=== PATIENT | male | born 1940 | race Caucasian/White ===

== ENCOUNTER 2018-08-20 06:21 | Observation (INO) | payer MEDICARE ==
[~2018-08-20] VITALS: Ht 238.8 cm; Wt 80.9 kg
--- NOTE | ~2018-08-20 | OP ---
PATIENT NAME: DEL CAMP MEDICAL RECORD: [id number] :41 LOCATION:D.OPS ADMISSION DATE: SURGEON: JANNA NASCIMENTO MD DATE OF OPERATION: 08/20/2018 PREOPERATIVE DIAGNOSES: 1. Right inguinal hernia. 2. Hypothyroidism. 3. Hyperlipidemia. 4. Cardiac arrhythmia. POSTOPERATIVE DIAGNOSES: 1. Right inguinal hernia. 2. Hypothyroidism. 3. Hyperlipidemia. 4. Cardiac arrhythmia. PROCEDURE: Right inguinal hernia repair with medium PHS mesh. SURGEON: Janna Nascimento MD REPORT OF PROCEDURE: The patient's right groin was prepped and draped in sterile fashion. An oblique incision was made above the inguinal ligament. Electrocautery was used to dissect through the subcutaneous tissue to the external oblique fascia. This fascia was opened up to the external ring using electrocautery. The spermatic cord was elevated and a Hawthorne was placed around it. The patient had 2 branches of an ilioinguinal nerve and these were high ligated. The patient had an indirect hernia defect. This was freed up from the surrounding tissues and pushed back down into the abdominal cavity. We inspected the patient's testicle and there was no sign of any masses or lesions visible. At this point, the inguinal floor was opened up and the preperitoneal space was opened in all directions. A medium PHS mesh was inserted and sutured down on all 4 sides using multiple interrupted 0 Vicryls. The wound was then irrigated out with normal saline. The external oblique fascia was closed with running 2-0 Vicryl, Shirlene's was closed with interrupted 3-0 Vicryl and the skin was closed with running subcutaneous 5-0 Monocryl. A 10 mL of 0.25% Marcaine with epinephrine was infused into the surrounding tissues and the wound was dressed appropriately. COMPLICATIONS: None. CONDITION: Stable. ANESTHESIA: General endotracheal and local. BLOOD LOSS: Minimal. TRANSINT:[id number] Voice Confirmation ID: [id number] DOCUMENT ID: [id number] OPERATIVE REPORT [id number] DEL CAMP CHRISTIAN MD CC: DEL GUTIÉRREZ MD [id number] DICTATION DATE: 08/20/18 1039 DAIRY TECHNOLOGIST: 08/20/18 [address] [place] [address]
[2018-08-20 07:16] LABS: HEMATOCRIT 41.8 % (42.0-54.0); HEMOGLOBIN 13.7 g/dL (13.5-17.5); LYMPHOCYTES 19.2 % (15-50); MCH 28.1 pg (26.0-34.0); MCHC 32.8 g/dL (31.0-37.0); MCV 85.7 fL (80.0-100.0); MEAN PLATELET VOLUME 10.3 fL (7.4-10.4); NEUTROPHILS 70.9 % (40-80); PLATELET COUNT 208 10x3/uL (130-400); RBC 4.88 10x6/uL (4.20-6.10); RDW 15.6 % (11.5-14.5); WBC 6.3 10x3/uL (4.8-10.8)
[2018-08-20 07:25] LABS: ANION GAP 14.1 mmol/L (8-16); CALCIUM 8.8 mg/dL (8.5-10.1); CARBON DIOXIDE 26.6 mmol/L (21.0-32.0); CREATININE - SERUM 1.2 mg/dL (0.6-1.3); POTASSIUM - SERUM 3.7 mmol/L (3.5-5.1)
[2018-08-20] MEDS ORDERED: PACERONE200 MG PO (08:13)
[2018-08-20] MEDS ORDERED: SYNTHROID200 MC1 PO (08:14)
[2018-08-20] MEDS ORDERED: OMEPRAZOLE40 MG PO (08:15)
[2018-08-20] MEDS ORDERED: VITAMIN B-121000 MCG PO (08:15)
[2018-08-20] MEDS ORDERED: CRESTOR10 MG PO (08:16)
[2018-08-20] MEDS ORDERED: TEMAZEPAM30 MG PO (08:17)
[2018-08-20] MEDS ORDERED: VIAGRA50 MG (08:18)
[2018-08-20] MEDS ORDERED: VIAGRA50 MG PO (08:18)
[2018-08-20 08:53] VITALS: BP 124/70; BMI 14.2
[2018-08-20] MEDS ORDERED: NORCO 10-325 TA1 TAB PO (10:35)
--- NOTE | 2018-08-20 11:20 | NUR ---
REC'D FROM RR. FAMILY AT BEDSIDE. DRESSING CDI TO RIGHT GROIN. RELATES PAIN 7-03/20. WATER AND FL TRAY BROUGHT TO PT.
--- NOTE | 2018-08-20 11:35 | NUR ---
NORCO 10MG PO ADMINISTERED PER ORDERS.
--- NOTE | 2018-08-20 11:50 | NUR ---
RATES PAIN 5/10 POST NORC. EATING FL DIET. FAMILY AND FRIEND AT BEDSIDE.
--- NOTE | 2018-08-20 12:20 | NUR ---
NO URGE TO VOID. NO C/O VOICED. GOING TO LUNCH.
--- NOTE | 2018-08-20 13:20 | NUR ---
UP TO BATHROOM. UNABLE TO VOID. LR 1000MG X1 PER DR NASCIMENTO.
--- NOTE | 2018-08-20 14:00 | NUR ---
UNABLE TO VOID. WATER BROUGHT TO PT AND IV INFUSING PER RIGHT PIV. FAMILY AT BEDSIDE.
--- NOTE | 2018-08-20 15:00 | NUR ---
AMBULATED TO BATHROOM. UNABLE TO VOID.
--- NOTE | 2018-08-20 15:15 | NUR ---
DR NASCIMENTO FINISHED IN OR. PAGED DR NASCIMENTO AND CALL BACK NUMBER LEFT.
--- NOTE | 2018-08-20 15:25 | NUR ---
SPOKE WITH DR NASCIMENTO REGARDING PATIENT'S INABILITY TO URINATE. ORDERED A BLADDER SCAN.
--- NOTE | 2018-08-20 15:50 | NUR ---
BLADDER SCANNED WITH 94-110ML NOTED. DR NASCIMENTO NORIFIED OF FINDINGS. ORDERED TO ADMIT TO OBSERVATION.
--- NOTE | 2018-08-20 17:10 | NUR ---
REPORT CALLED TO Hermelinda GUARDADO RN. WAITING FOR ROOM TO BE CLEANED.
--- NOTE | 2018-08-20 18:05 | NUR ---
ROOM 1211 IS CLEAN. PT RELATES HE DID VOID WITHOUT DIFFICULTY. TRANSFERRING TO ROOM 1211 VIA WC.
--- NOTE | 2018-08-20 18:25 | NUR ---
PT ARRIVED TO UNIT VIA WHEELCHAIR ACCOMPANIED BY HOSPITAL STAFF. PT HAS A LEFT FA IV RUNNING NS AT 50ML/HR. PT RT GROIN DRESSING IS CDI. PT HAS VOIDED TWICE, ONCE IN OUPATIENT AND ONCE ON THIS UNIT. PT'S UNABLE TO DRIVE AFTER DARK. PT STAYING FOR OBS. PT DINNER TRAY ORDERED. PT DENIES NEEDS. WCTM.
[2018-08-20 18:39] VITALS: Ht 238.8 cm; Wt 80.9 kg
[2018-08-20 23:00] VITALS: BP 127/68
[2018-08-21 04:07] VITALS: BP 122/72
--- NOTE | 2018-08-21 08:00 | NUR ---
AWAKE AND ALERT. ORIENTED X3. NO C/O THIS AM. REPORTS VOIDING WITHOUT DIFFICULTY. LUNGS ARE CLEAR BILATERALLY, NO COUGH NOTED. SKIN IS INTACT WITHOUT REDNESS. IV TO LEFT FOREARM IS PATENT WITHOUT REDNESS AT INSERTION SITE. DENIES NEEDS. ANXIOUS TO GO HOME.
[2018-08-21 08:24] VITALS: BP 127/67
--- NOTE | 2018-08-21 09:56 | NUR ---
REQUESTED AND GIVNE ONE HYDROCODONE PO FOR C/O RIGHT GROIN PAIN LEVEL 2. WILL MONITOR.
--- NOTE | 2018-08-21 11:18 | NUR ---
DISCHARGED TO HOME AMBULATORY WITH FRIEND. DISCHARGE INSTRUCTIONS GIVEN BOTH VERBALLY AND WRITTEN. ALL QUESTIONS ANSWERED. PATIENT VERBALIZED UNDERSTANDING OF SAME. TO RIGHT FOREARM D/C WITH CATHETER INTACT. ALL BELONGINGS WITH PATIENT.
== END 2018-08-21 11:20 | disposition home or self-care (01) ==
LOC: D.OPS 06:21 → D.M3 06:21 → D.OPS 09:00 → D.PAN 09:00 → D.OPS 09:15 → D.M3 18:06 → D.OPS 18:07 → OBSVTIME 18:07 → D.M3 18:07
PROVIDERS: ADMIT Surgery
DX: K40.90 Unilateral inguinal hernia, without obstruction or gangrene, not specified as recurrent (principal); E03.9 Hypothyroidism, unspecified; E78.5 Hyperlipidemia, unspecified

== ENCOUNTER 2018-10-18 14:58 | Observation (INO) | payer MEDICARE ==
[~2018-10-18] VITALS: Ht 188 cm; Wt 79.1 kg
--- NOTE | ~2018-10-18 | OP ---
PATIENT NAME: DEL CAMP MEDICAL RECORD: [id number] :41 LOCATION:D.M2 D.2137 ADMISSION DATE:10/18/18 SURGEON: CHANI BRAXTON MD DATE OF OPERATION: 10/19/2018 PROCEDURES: 1. Left heart catheterization. 2. Selective coronary angiography. 3. Left ventriculogram. INDICATION: Angina and coronary artery disease. PROCEDURE IN DETAIL: After informed consent was obtained with detailed description of risks and benefits as well as alternative therapies, the patient elected to proceed with angiogram and heart catheterization. The right radial area was prepped and draped in normal sterile fashion. The right radial artery was cannulated via modified Seldinger technique with placement of 6-Botswanan sheath. All catheters were exchanged through this sheath. FINDINGS: Left ventriculogram performed in standard 30-degree MURPHY view reveals good cardiac wall motion throughout all segments. Overall ejection fraction is estimated at 50%. SELECTIVE CORONARY ANGIOGRAPHY: Left main, left anterior descending, left circumflex, and right coronary artery are all with just minimal irregularities. No flow-limiting stenosis. OVERALL IMPRESSION: 1. No significant coronary artery disease is present. 2. Preserved LV function. Center medical management on treatment of the bradycardia and the dysrhythmia. TRANSINT:[id number] Voice Confirmation ID: [id number] DOCUMENT ID: [id number] CHANI BRAXTON MD CC: [id number] DICTATION DATE: 10/19/18 162 PUBLIC RELATIONS PROFESSIONAL: 10/19/18 1856 ADM IN [facility] [address] [place] [address]
--- NOTE | ~2018-10-18 | EC ---
PATIENT:DEL CAMP DATE OF SERVICE: 10/18/18 SEX: M MEDICAL RECORD: [id number] DATE OF : 42 LOCATION:D.M2 D.213 AGE OF PATIENT: 78 ADMISSION DATE: 10/18/18 REFERRING PHYSICIAN: INTERPRETING PHYSICIAN: CHANI ROBERTS MD ECHOCARDIOGRAM REPORT ECHO CHARGES 4 ECHO COMPLETE Date: 10/19/18 CLINICAL DIAGNOSIS: AFIB ECHOCARDIOGRAPHIC MEASUREMENTS (adult normal given) AC root (d.<3.7cm) 4.3 cm LV Septum d (<1.2 cm> 1.7 cm Valve Excursion 2.1 cm LV Septum (systole) 2.0 cm Left Atria (s.<4.0cm> 3.5 cm LVPW d(<1.2cm) 1.8 cm RV (d.<2.3cm) 5.0 cm LVPW (sytole) 1.9 cm LV diastole(<5.6CM) 52.0 cm MV E-F(>70mm/sec) cm LV systole 4.0 cm LVOT Diameter 2.5 cm MV exc.(>10mm) 1.1 cm Est.ejection fraction (50-75%) % DOPPLER: LVIT cm/sec A 97.0 cm/sec E 50.0 cm/sec LA cm/sec RVSP 35 mmHg LVOT 4130 cm/sec AOP1/2T 554 m/s Asc. Ao 170 cm/sec RVOT 66 cm/sec RA cm/sec PA 104 cm/sec AV Gradient Peak 11.53mmHg AV Mean 5.99 mmHg AV Area 3.70 cm MV Gradient Peak 3.88 mmHg MV Mean 0.89 mmHg MV Area cm COMMENTS: Master Automotive Glass Technician: Vikash KRAMER Dogger: 1 Dr. Roberts TAPE# PACS Pericardial Effusion N DATE OF SERVICE: 10/19/2018 FINDINGS: 1. Left ventricular chamber size is within normal limits. Left ventricular systolic function is normal. Overall ejection fraction is estimated at 55%. 2. Left atrium is within normal limits at 3.5 cm. Right atrium and right ventricular chamber sizes are mildly dilated. 3. Valvular structures have normal structure and motion. 4. Doppler interrogation reveals mild aortic insufficiency and mild tricuspid regurgitation. No other valvular insufficiency or stenosis. Pulmonary systolic ECHOCARDIOGRAM REPORT [id number] DEL CAMP pressure is normal, estimated at 35 mmHg. 5. No evidence of pericardial effusion or left ventricular thrombus. TRANSINT:[id number] Voice Confirmation ID: [id number] DOCUMENT ID: [id number] CHANI ROBERTS MD CC: [id number] DICTATION DATE: 10/19/181638 STAIN REMOVER: 10/19/181911 ADM IN [facility] [address] [place] [address]
--- NOTE | ~2018-10-18 | DS ---
PATIENT:DEL CAMP :42 MEDICAL RECORD: [id number] DISCHARGE SUMMARY ADMISSION DATE: 10/18/18 DISCHARGE DATE: DIAGNOSES: 1. Bradycardia. 2. Angina. 3. Paroxysmal atrial fibrillation. 4. Hyperlipidemia. HOSPITAL COURSE: Mr. Camp presents with bradycardia and chest pain, found to have no significant coronary disease. He was on amiodarone 200 mg b.i.d. for atrial fibrillation. This was decreased to 100 mg a day. He will follow up with [facility] in 1 month. TRANSINT:[id number] Voice Confirmation ID: [id number] DOCUMENT ID: [id number] CHANI BRAXTON MD CC: [id number] DICTATION DATE: 10/19/18 1626 INSTRUMENT MECHANICS SUPERVISOR: 10/20/18 0657 ADM IN [place] [id number] [place] [id number]
--- NOTE | ~2018-10-18 | HEMODYNAMI ---
PATIENT:DEL CAMP MEDICAL RECORD: [id number] : 41 [facility]:[address] [id number] ADMISSION DATE: 10/18/18 Generatedon:10/19/201816:23 Patient name: DEL CAMP Patient #: [id number] SSN: : 1940 Date of study: 10/19/2018 Page: Of Hemodynamic Procedure Report Patient Data Patient Demographics Procedure consent was obtained First Name: DEL Gender: Male Last Name: CONRADO : 1940 [facility] Initial: J Age: 78 year(s) Patient #: [id number] Race: Unknown Additional ID: [id number] Contact details Address: [address] [place] [address] State: [place] City: [place] Zip code: [address] Past Medical History Allergies: No known allergies Admission Admission Data Admission Date: 10/18/2018 Admission Time: 16:38 Room #: D.2137 Lab Results Lab Result Date: 10/19/2018 Lab Result Time: 15:15 Biochemistry Name Units Result Min Max BUN mg/dl 16 --(---*)-- 7 18 Creatinine mg/dl 1.3 --(---*)-- 0.6 1.3 CBC Name Units Result Min Max Hematocrit % 43 --(*---)-- 42 54 Hemoglobin g/dl 14.2 --(*---)-- 13.5 17.5 Procedure Procedure Types Cath Procedure Diagnostic Procedure LHC LHC w/Coronaries Procedure Description Procedure Date Procedure Date: 10/19/2018 Procedure Start Time: 16:14 Procedure End Time: 16:23 Procedure Staff Name Function Lizandro Roberts MD Performing Physician Jake Rios RT Monitor Inna Zurita RN Nurse Xiomara Gandara RT Scrub Sagar Olguin RT Coil Placer Procedure Data Cath Procedure Fluoroscopy Diagnostic fluoroscopy Total fluoroscopy Time: 1.6 time: 1.6 min min Diagnostic fluoroscopy Total fluoroscopy dose: 408 dose: 408 mGy mGy Contrast Material Contrast Material Type Amount (ml) Isovue 300 46 Entry Location Entry Primary Successful Side Size Upsize Upsize Entry Closure Amaro ccessful Closure Location (Fr) 1 (Fr) 2 (Fr) Remarks Device Remarks Radial Right 6 Fr Mechanical artery Short Compression Estimated blood loss: 5 ml Diagnostic catheters Device Type Used For End Catheter Placement DIAGNOSTIC [place] 110cm 5 Procedure Fr catheter ([id number]) Procedure Complications No complications Procedure Medications Medication Administration Route Dosage Oxygen etCO2 Nasal cannula 2 l/min Lidocaine 2% added to field 20 Heparin Flush Bag added to field 2 bags (1000units/500ml NS) 0.9% NaCl I.V. 100 ml/hr Radial Cocktail I.A. 1 syringe (Verapomil 2mg/Nitro 400mcg/Heparin 1500units) Versed I.V. 1 mg Fentanyl I.V. 50 mcg Versed I.V. 1 mg Hemodynamics Rest Heart Rate: 50 (bpm) Snapshots Pre Cath Intra NCS Post Cath Vital Signs Time Heart Resp SPO2 etCO2 NIBP (mmHg) Rhythm Pain Sedation Rate (ipm) (%) (mmHg) Status Level (bpm) 16:04:37 51 19 98 18.8 134/75(113) NSR 0 (11) 10(A) , No pain 16:08:53 50 18 99 18.1 127/74(106) NSR 0 (11) 10(A) , No pain 16:13:07 49 12 98 22.6 142/71(114) NSR 0 (11) 9(A) , No pain 16:17:17 50 15 98 0 118/69(91) NSR 0 (11) 9(A) , No pain 16:21:27 55 12 98 24.9 120/70(86) NSR 0 (11) 10(A) , No pain 16:22:57 52 10 97 0 120/71(99) NSR 0 (11) 10(A) , No pain Medications Time Medication Route Dose Verified Delivered Reason Notes Effectiveness by by 16:07:09 Oxygen etCO2 2 l/min Lizandro Keith used for Nasal Armando Zurita RN procedure cannula 16:07:15 Lidocaine 2% added 20ml Lizandro Bone for local to vial Armando Roberts MD anesthetic field 16:07:21 Heparin Flush added 2 bags Lizandro Bone used for Bag to Armando Roberts MD procedure (1000units/500ml field NS) 16:07:29 0.9% NaCl I.V. 100 Lizandro Keith Per ml/hr Armando Zurita RN physician 16:07:53 Radial Cocktail I.A. 1 Lizandro Bone for (Verapomil syringe Armando Roberts MD vasodilation 2mg/Nitro 400mcg/Heparin 1500units) 16:11:01 Fentanyl I.V. 50 mcg Lizandro Keith for sedation Armando Zuirta RN 16:11:56 Versed I.V. 1 mg Lizandro Keith for sedation Armando Zurita RN 16:16:07 Versed I.V. 1 mg Lizandro Keith for sedation Armando Zurita RN Procedure Log Time Note 15:44:39 Sagar Olguin RT(R) sent for patient. Start room use. 15:44:39 Time tracking: Regular hours (M-F 7:00 - 5:00) 15:44:43 Plan of Care:Hemodynamics will remain stable., Cardiac rhythm will remain stable., Comfort level will be maintained., Respiratory function will remain adequate., Patient/ family verbilizes understanding of procedure., Procedure tolerated without complication., Recovers from procedure without complications.. 15:54:05 Patient received from Med II to CCL 1 Alert and oriented. Tansferred to table in Supine position. 15:54:06 Warm blankets applied, and surekha hugger turned on for patient comfort. 15:54:06 Correct patient and procedure confirmed by team. 15:54:07 Signed procedure consent form obtained from patient. 15:54:08 ECG and BP/O2 sat monitors applied to patient. 15:54:09 Pre-procedure instructions explained to patient. 15:54:10 Pre-op teaching completed and patient verbalized understanding. 15:54:11 Family in patients room. 15:54:12 Patient NPO since Midnight. 15:54:46 Lab Result : Hemoglobin 14.2 g/dl 15:54:46 Lab Result : Hematocrit 43 % 15:54:46 Lab Result : BUN 16 mg/dl 15:54:46 Lab Result : Creatinine 1.3 mg/dl 15:55:12 H&P Date Dictated: 10/18/2018 Within 30 days and on chart.. 15:55:18 Lab results completed and on chart. 16:03:25 Vital chart was started 16:07:09 Oxygen 2 l/min etCO2 Nasal cannula was administered by Inna Zurita RN; used for procedure; 16:07:15 Lidocaine 2% 20ml vial added to field was administered by Lizandro Roberts MD; for local anesthetic; 16:07:21 Heparin Flush Bag (1000units/500ml NS) 2 bags added to field was administered by Lizandro Roberts MD; used for procedure; 16:07:29 0.9% NaCl 100 ml/hr I.V. was administered by Inna Zurita RN; Per physician; 16:07:53 Radial Cocktail (Verapomil 2mg/Nitro 400mcg/Heparin 1500units) 1 syringe I.A. was administered by Lizandro Roberts MD; for vasodilation; 16:09: Full Disclosure recording started 16:09:16 Patient allergic to No known allergies 16:09:18 Is the patient allergic to Iodine/contrast media? No. 16:09:21 Is patient on blood thinner?No 16:09:22 Patient diabetic? No. 16:09:25 Previous problem with sedation/anesthesia? No ? 16:09:28 Snore? Yes 16:09:35 Sleep apnea? No 16:09:36 Deviated septum? No 16:09:37 Opens mouth fully? Yes 16:09:41 Sticks out tongue? Yes 16:09:47 Airway obstruction? No ? 16:09:56 Dentures? Yes in tight 16:10:00 Pre procedure: left dorsailis pedis pulse 2+ Normal; easily identifiable; not easily obliterated 16:10:02 Modified Leobardo's test Ulnar < 7 seconds 16:10:04 Patient pain scale 0/10 ?. 16:10:14 IV patent on arrival in left forearm with 0.9% NaCl at [facility]. 16:10:20 Right Radial & Left Groin area was prepped with chlora-prep and draped in sterile fashion 16:10:21 Alarms reviewed by R. N. 16:10:21 Sharps counted by scrub and verified by R.N. 16:10:23 Use device set Radial Dx or PCI 16:10:24 ACIST Syringe (14177) opened to sterile field. 16:10:24 Medline Cath Pack ([id number]) opened to sterile field. 16:10:25 Bag Decanter (2001S) opened to sterile field. 16:10:26 ACIST Hand Control (48571) opened to sterile field. 16:10:27 ACIST Manifold (94168) opened to sterile field. 16:10:27 Tegaderm 4 x 4 (1626W) opened to sterile field. 16:10:28 MBrace Wrist Support ([id number]) opened to sterile field. 16:10:29 SHEATH 6FR Slender (17-6920) opened to sterile field. 16:10:30 DIAGNOSTIC WIRE .035 260cm J wire (409467) opened to sterile field. 16:10:34 Baseline sample Acquired. 16:10:38 Rhythm: sinus rhythm 16:10:52 Physician arrived 16:10:53 --------ALL STOP TIME OUT------ 16:10:53 Final Timeout: patient, procedure, and site verified with staff and physician. All members of the team are in agreement. 16:10:55 Right Radial & Left Groin site verified by team. 16:10:58 Maximum allowable Isovue 300 dose 300ml. Physician notified. (300ml for normal creatinines. For patients with creatinine of 1.7 or higher multiply weight(kg) x 5 divided by creatinine.) 16:11:01 Fentanyl 50 mcg I.V. was administered by Inna Zurita RN; for sedation; 16:11:03 Fire Safety Assessment: A--An alcohol-based skin anteseptic being used preoperatively., C--Open oxygen or nitrous oxide is being used., D--An ESU, laser, or fiber-optic light is being used., E--There are other possible contributors. 16:11:06 Physical assessment completed. ASA score P 2 - A patient with mild systemic disease as per Lizandro Roberts MD. 16:11:08 Sedation plan: IV Moderate Sedation Medication:Versed, Fentanyl 16:11:56 Versed 1 mg I.V. was administered by Inna Zurita RN; for sedation; 16:14:42 Procedure started. 16:14:47 Local anesthetic to right radial artery with Lidocaine 2% by Lizandro Roberts MD.INITIAL ACCESS ONLY 16:14:56 A 6 Fr Short sheath was inserted into the Right Radial artery 16:14:58 Zero performed for pressure channel P1 16:15:02 Zero performed for pressure channel P1 16:15:04 Zero performed for pressure channel P1 16:15:07 Zero performed for pressure channel P1 16:15:13 Zero performed for pressure channel P1 16:15:30 Zero performed for pressure channel P1 16:15:52 A DIAGNOSTIC [place] 110cm 5 Fr catheter (581666) was advanced over the wire and used for Procedure. 16:16:07 Versed 1 mg I.V. was administered by Inna Zurita RN; for sedation; 16:16:48 LV gram done using MURPHY 16:16:50 Injector settings: Ml/sec: 5, Volume: 15, 16:16:53 LV hemodynamics recorded. 16:17:03 EF : 40 % 16:17:06 LCA angiography performed. 16:17:31 RCA angiography performed. 16:17:58 Catheter exchanged over wire. 16:18:32 GUIDE 6FR XBLAD 3.5 catheter ([id number]) opened to sterile field. 16:18:55 LCA angiography performed. 16:19:38 TR BAND Standard ([id number]) opened to sterile field. 16:19:48 Sheath removed intact; hemostasis achieved with Mechanical Compression to the Right Radial artery. 16:20:39 Procedure ended.(Physican Out) 16:21:51 Fluoroscopy time 01.60 minutes. 16:21:55 Fluoroscopy dose: 408 mGy 16:21:55 Flurop Dose total: 408 16:21:59 Contrast amount:Isovue 300 46ml. 16:22:00 Sharps counted by scrub and verified by R.N. 16:22:04 TR band inflated with 12cc of air. 16:22:05 Insertion/operative site no bleeding no hematoma. 16:22:11 Post-op/insertion site Right Radial artery dressed using a 4 x 4 and Tegaderm. 16:22:27 Post Procedure Pulses reassessed and unchanged 16:22:29 Post-procedure physical assessment completed. ASA score P 2 - A patient with mild systemic disease as per Lizandro Roberts MD. 16:22:31 Post procedure rhythm: unchanged. 16:22:36 Estimated blood loss: 5 ml 16:22:37 Post procedure instruction explained to patient.Patient verbalizes understanding. 16:22:38 Patient needs reinforcement of post procedure teaching. 16:23:00 Procedure and supply charges have been captured, reviewed, submitted and are correct. 16:23:02 Procedure Complication : No complications 16:23:04 Vital chart was stopped 16:23:04 See physician's report for complete and final results. 16:23:07 Report given to PCU. 16:23:09 Patient transfered to PCU with Stretcher. 16:23:11 Procedure ended. 16:23:11 Full Disclosure recording stopped 16:23:14 End room use (Document Last) Device Usage Item Name Manufacture Quantity Catalog Hospital Part Current Minimal Lot# / Number Charge Number Stock Stock Serial# Code ACIST Acist 1 40594 015691 322966 530622 20 Syringe Medical (40380) Systems Inc Medline Medline 1 [id number] 548178 12114 730309 5 Cath Pack ([id number]) Bag Microtek 1 2001S 207597 39675 514123 5 Decanter Medical Inc. () ACIST Hand Acist 1 42159 360268 877049 193111 5 Control Medical (91563) Systems Inc ACIST Acist 1 59067 454588 397615 015393 5 Manifold Medical (84767) Systems Inc Tegaderm 4 3M 1 1626W 564581 046846 988826 5 x 4 (1626W) MBrace Advanced 1 140-0250-00 084261 06108 339165 5 Wrist Vascular Support Dynamics ([id number]) SHEATH 6FR Terumo 1 [id number] 469786 800863 291264 5 Slender (80-1060) DIAGNOSTIC St German 1 568268 174507 093646 968130 30 WIRE .035 260cm J wire (307453) DIAGNOSTIC Terumo 1 40-7460 564252 112064 267143 5 [place] 110cm 5 Fr catheter (104024) GUIDE 6FR Cardinal 1 [id number] 951078 419275 662849 10 XBLAD 3.5 Health catheter (55181088) TR BAND Terumo 1 [id number] 944042 239806 637451 40 Standard ([id number]) Signature Audit [place] Stage Time Signature Unsigned Intra-Procedure 10/19/2018 Jake Rios 4:23:32 PM RT(R) Signatures Monitor : Jake Rios RT Signature : Date : Time : [place] [address] [place] [address]
[~2018-10-18 14:58] MED LIST: CRESTOR10 MG PO; NORCO 10-325 TA1 TAB PO; OMEPRAZOLE40 MG PO; PACERONE200 MG PO; SYNTHROID200 MC1 PO; TEMAZEPAM30 MG PO; VIAGRA50 MG; VIAGRA50 MG PO; VITAMIN B-121000 MCG PO
--- NOTE | 2018-10-18 15:10 | NUR ---
BLOOD DRAWN WITH IV START AND SENT TO THE LAB.
[2018-10-18 15:29] LABS: BASOPHILS 0.4 % (0-2); HEMOGLOBIN 14.2 g/dL (13.5-17.5); IMMATURE GRANULOCYTES 0.2 % (0-5); LYMPHOCYTES 19.4 % (15-50); MCH 28.3 pg (26.0-34.0); MCV 85.8 fL (80.0-100.0); MEAN PLATELET VOLUME 11.6 fL (7.4-10.4); MONOCYTES 6.4 % (2-11); NEUTROPHILS 72.6 % (40-80); RBC 5.01 10x6/uL (4.20-6.10); RDW 15.1 % (11.5-14.5); WBC 9.1 10x3/uL (4.8-10.8)
[2018-10-18 15:50] LABS: ALBUMIN 3.6 g/dL (3.4-5.0); ALKALINE PHOSPHATASE 61 U/L (46-116); ALT (SGPT) 34 U/L (10-68); BILIRUBIN - TOTAL 0.36 mg/dL (0.2-1.3); CALC OSMOLALITY 285 mosm/kg (275-300); CALCIUM 8.6 mg/dL (8.5-10.1); CHLORIDE - SERUM 106 mmol/L (98-107); CREATININE - SERUM 1.3 mg/dL (0.6-1.3); GLUCOSE 96 mg/dL (74-106); PROTEIN - SERUM 7.2 g/dL (6.4-8.2); SODIUM 143 mmol/L (136-145); UREA NITROGEN 16 mg/dL (7-18); eGFR NON AFRICAN AMERICAN 57 mL/min (90-120)
[2018-10-18 16:00] LABS: CKMB 0.4 U/L (0.0-3.6); CREATINE KINASE 48 UL (21-232)
[2018-10-18 16:04] LABS: PLATELET COUNT 250 10x3/uL (130-400)
[2018-10-18 16:09] VITALS: BP 133/67
[2018-10-18 16:10] LABS: TROPONIN-I < 0.017 ng/mL (0.000-0.060)
--- NOTE | 2018-10-18 17:59 | NUR ---
PT IS PLESANT MALE. UP AD MARCY, A/OX4. CL IN REACH. SRX2. LEFT FOR HOME (DOESN'T DRIVE IN THE DARK) NO COMPLAINTS/CONCERNS STATED AT THIS TIME. TELEMTRY ON.
[2018-10-18 18:07] VITALS: BP 132/76; Ht 188 cm; Wt 79.1 kg
--- NOTE | 2018-10-18 19:36 | NUR ---
EVENING ROUNDS COMPLETED. REPORT RECEIVED. PT SITTING UP IN BED WITH EYES OPEN, RR EVEN AND UNLABORED. PT ANSWERS QUESTIONS APPROPRIATELY. INTRODUCED SELF TO PT. PT DENIES FURTHER NEEDS AT THIS TIME. BED IN LOW POSITION. NO S/S OF DISTRESS NOTED. CALL LIGHT IN REACH. WILL CTM.
[2018-10-18 19:55] VITALS: BP 123/69
--- NOTE | 2018-10-19 02:36 | NUR ---
I have reviewed this patient and I concur with the Shift Assessment completed by the Licensed Practical Nurse today this shift.
[2018-10-19 03:50] VITALS: BP 133/73
--- NOTE | 2018-10-19 05:07 | NUR ---
PT SITTING UP IN BED WITH EYES OPEN, RR EVEN AND UNLABORED. 47 SINUS HORTENCIA ON TELEMETRY. DENIES FURTHER NEEDS AT THIS TIME. CALL LIGHT IN REACH. WILL CTM.
[2018-10-19 07:36] LABS: MAGNESIUM - SERUM 2.1 mg/dL (1.8-2.4)
--- NOTE | 2018-10-19 07:45 | NUR ---
REPORT RECEIVED. WILL CONTINUE WITH POC. PT CURRENTLY LYING SEMI FOWLERS. CALL LIGHT W/I REACH. PT IS AAO AND UP AD MARCY. RR EVEN AND UNLABORED ON RA. L.WRIST PIV IS SALINE LOCKED. PT DENIES ANY NEEDS AT THIS TIME. NO S/S OF DISTRESS NOTED. WILL CTM.
[2018-10-19 08:28] VITALS: BP 124/78
--- NOTE | 2018-10-19 10:54 | HP ---
PATIENT: DEL CAMP MEDICAL RECORD: [id number] ACCOUNT: [id number] LOCATION:[address] : 42 ADMISSION DATE: 10/18/18 PCP: DEL GUTIÉRREZ MD HISTORY AND PHYSICAL EXAMINATION DIAGNOSES: 1. Unstable angina. 2. Paroxysmal atrial fibrillation. 3. Coronary artery disease. 4. Previous cardiac PTCA stent. 5. Hyperlipidemia. 6. Hypothyroidism, on replacement. 7. GERD. HISTORY OF PRESENT ILLNESS: Mr. Camp presents with chest discomfort for the past 3 days, he has had increasing episodes of chest tightness, chest discomfort, very similar to his previous angina. His last cardiac intervention was in 2014. He has a history of atrial fibrillation, for which he is on Pacerone 200 mg b.i.d. He is bradycardic. He also has hyperlipidemia, for which he is on Crestor. REVIEW OF SYSTEMS: The patient reports easy bruising but reports no swollen glands. The patient reports no fever, no night sweats, no significant weight gain, no significant weight loss. No significant exercise tolerance. The patient reports no dry eyes, no irritation, no vision change. Patient reports no difficulty hearing and no ear pain. Patient reports no frequent nose bleeds or nose and sinus problems. Patient reports on arm pain on exertion. No shortness of breath while lying down. No history of heart murmur. Patient reports no cough, no wheezing or coughing up blood. Patient reports no abdominal pain, no vomiting. Normal appetite. No diarrhea and not vomiting blood. No nausea and no constipation. Patient reports no incontinence. No difficulty urinating. No hematuria. No increased frequency. Patient reports no muscle aches. No weakness, no arthralgias, no back pain. No swelling of the extremities. Patient reports no abnormal mole, no jaundice, no rashes. Reports no loss of consciousness. No weakness and no numbness. No seizures, dizziness, or headaches. The patient reports no depression, no sleep disturbance, feeling safe in a relationship and no alcohol abuse. Patient reports on fatigue. Reports no runny nose or sinus pressure. No itching, no hives, and no frequent sneezing. PHYSICAL EXAMINATION: GENERAL APPEARANCE: Well-nourished, well-developed, appears stated age. Level of distress, comfortable. PSYCHIATRIC: Mental status, alert, normal affect. Orientation, oriented to time, place and person. EYES: Lids and conjunctiva, noninjected. No discharge, no pallor. ENT: Lips, teeth, gums, normal dentition. Oropharynx, no cyanosis, no pallor. NECK: Carotid arteries, bilateral normal upstroke, no bruits, no thrills. JUGULAR VEINS: No jugular venous pressure or distention. CERVICAL LYMPH NODES: Nontender, nonenlarged. THYROID: Not enlarged. Nontender. No nodules. LUNGS: Respiratory effort, unlabored. CHEST: Normal curvature. No thoracic deformity. No chest wall tenderness. Percussion, resonant. Auscultation, clear. No wheezes, no rales, no rhonchi. CARDIOVASCULAR: Precordial exam, nondisplaced. No heaves or pericardial HISTORY AND PHYSICAL [id number] DEL CAMP thrmayank. Rate and rhythm, regular. Heart sounds, normal S1, normal S2. No S3, no gallop, no rub. Systolic murmur, not heard. Diastolic murmur, not heard. EXTREMITIES: No cyanosis, no edema. Peripheral pulses, full and equal in all extremities, except as noted. No bruits appreciated. ABDOMEN: Soft, nondistended. Normal aorta. No bruit. Nontender. No masses. Liver, nontender, no hepatomegaly. Spleen, nontender, no splenomegaly. MUSCULOSKELETAL: No joint tenderness. No joint swelling. No erythema. NEUROLOGICAL: Normal gait, normal strength, normal tone. SKIN: Warm and dry. OVERALL IMPRESSION: Angina in an unstable fashion with multiple risk factors and a past history of coronary artery disease, most likely he has recurrent hemodynamically significant coronary artery disease. We will proceed with coronary angiography. Further care depends upon findings of the angiography. TRANSINT:[id number] Voice Confirmation ID: [id number] DOCUMENT ID: [id number] CHANI BRAXTON MD at 1054 CC: [id number] DICTATION DATE: 10/19/18819 GUARD MANAGER: 10/19/18 0849 ADM IN [id number] [place] [address]
--- NOTE | 2018-10-19 11:14 | NUR ---
RECEIVED ORDERS FOR HEART CATH. PT SIGNED CONSENTS. LARGE DOSE OF PLAVIX ADMINISTERED. WILL CTM.
[2018-10-19 11:40] VITALS: BP 132/72
[2018-10-19 14:55] VITALS: BP 123/70
--- NOTE | 2018-10-19 15:08 | NUR ---
PREOP MEDS ADMINISTERED PER [facility] UNDERWRITER REQUEST. NS INFUSING @[facility] VIA L.HAND PIV. WILL CTM.
--- NOTE | 2018-10-19 15:19 | NUR ---
I have reviewed this patient and I concur with the Shift Assessment completed by the Licensed Practical Nurse today this shift.
--- NOTE | 2018-10-19 16:58 | NUR ---
PT RETURNED WITH CLEAN CATH. RIGHT RADIAL SITE IS C/D/I. NO SIGN OF HEMATOMA PRESENT. TR BAND IN PLACE. WILL MONITOR.
--- NOTE | 2018-10-19 18:39 | NUR ---
5ML OF AIR REMOVED FROM TR BAND. NO ACTIVE BLEEDING NOTED. PT ATE ALL OF DINNER AND DENIES ANY NEEDS. WILL CTM.
--- NOTE | 2018-10-19 19:47 | NUR ---
RESUMING PATIENT CARE. PATIENT IS ALERT AND ORIENTED. RESTING COMFORTABLY IN BED. RES[IRATIONS ARE EVEN AND UNLABORED. DENIES NEEDS AT THIS TIME. CALL LIGHT WITHIN REACH. WILL CPOC.
[2018-10-19 20:05] VITALS: BP 116/80
[2018-10-20 03:47] VITALS: BP 119/72
--- NOTE | 2018-10-20 05:13 | NUR ---
PATIENT RESTING COMFORTABLY IN BED. RESPIRATIONS ARE EVEN AND UNLABORED. NO S/S OF DISTRESS. NO C/O PAIN. CALL LIGHT WITHIN REACH. WILL CPOC.
--- NOTE | 2018-10-20 07:00 | NUR ---
RECEIVED BEDSIDE SHIFT REPORT. ASSUMED CARE OF PATIENT. CALL LIGHT WITH IN REACH. PATIENT ALERT/ORIENTED. ASKING IF HE MAY GO HOME TODAY. RESP EVEN AND UNLABORED. NO BRUISING TO RIGHT WRIST FROM HEART CATH ON 10/19/18. TR BAND REMOVED ON PREVIOUS SHIFT. NO DISTRESS.
[2018-10-20 08:26] VITALS: BP 120/66
[2018-10-20 11:44] VITALS: BP 119/69
--- NOTE | 2018-10-20 12:30 | NUR ---
CALLED OFFICE TO QUESTION IF PATIENT WAS ABLE TO BE DISCHARGED TODAY. WAS TOLD MARY CARMEN WOULD BE HERE AT 1400 TO DO AFTERNOON ROUNDS AND WOULD PROBABLY LET PATIENT GO. PATIENT NOTIFIED NURSE PRACTITIONER WILL BE HERE TO DO ROUNDS AT 1400. PATIENT THANKED THIS NURSE FOR THE UPDATE. PATIENT AT BEDSIDE.
[2018-10-20 15:34] VITALS: BP 123/61
--- NOTE | 2018-10-20 16:49 | NUR ---
20 GAUGE IV REMOVED FROM LEFT WRIST. NO BLEEDING FROM SITE. CATHETER TIP INTACT. 2X2 APPLIED AND COVERED WITH BANDAID. NO DISTRESS. TOLERATED IV REMOVAL WELL.
[2018-10-20] MEDS ORDERED: PACERONE100 MG PO (16:58)
--- NOTE | 2018-10-20 17:26 | NUR ---
1715DISCHARGE INSTRUCTIONS PROVIDED TO PATIENT AND HIS . BOTH VERBALIZED UNDERSTANDING OF INSTRUCTIONS PROVIDED. 1720 PATIENT LEFT UNIT WITH ALL PERSONAL BELONGINGS. PATIENT DISCHARGED TO HOME. PATIENT LEFT UNIT VIA WHEELCHAIR IN NO DISTRESS.
== END 2018-10-20 17:28 | disposition home or self-care (01) ==
LOC: D.ER 14:58 → D.EDHOLD 16:38 → D.M2 16:38 → OBSVTIME 16:39 → D.M2 17:14
PROVIDERS: Emergency Medicine; ADMIT Internal Medicine Interventional Cardiology; ATTEND Internal Medicine Interventional Cardiology
DX: R00.1 Bradycardia, unspecified (principal); I25.110 Atherosclerotic heart disease of native coronary artery with unstable angina pectoris; I48.0 Paroxysmal atrial fibrillation; E78.5 Hyperlipidemia, unspecified; E03.9 Hypothyroidism, unspecified; K21.9 Gastro-esophageal reflux disease without esophagitis

== ENCOUNTER → 2020-10-09 09:23 | Outpatient (CLI) | payer MEDICARE ==
[2018-10-18 18:07] VITALS: BMI 22.4
[~2020-10-09 09:23] MED LIST changes: +PACERONE100 MG PO
== END | disposition home or self-care (01) ==
LOC: D.HCCARDIO 10-05 09:00
PROVIDERS: ATTEND Internal Medicine Cardiovascular Disease
DX: I25.10 Atherosclerotic heart disease of native coronary artery without angina pectoris (principal)

== ENCOUNTER 2020-10-19 07:04 | Day surgery (SDC) | payer MEDICARE ==
[~2020-10-19] VITALS: Ht 188 cm; Wt 88.3 kg
--- NOTE | ~2020-10-19 | HEMODYNAMI ---
PATIENT:DEL CAMP MEDICAL RECORD: [id number] : 42 LOCATION:[facility] ADMISSION DATE: 10/19/20 Generatedon:110:11 Patient name: DEL CAMP Patient #: [id number] : 1940 Date of study: 10/19/2020 Page: Of Hemodynamic Procedure Report Patient Data Patient Demographics First Name: DEL Gender: Male Last Name: CONRADO : 1940 [facility] Initial: J Age: 80 year(s) Patient #: [id number] Race: Unknown SSN: [id number] Additional ID: [id number] Contact details [address]: [address] [place] [address] State: [place] City: [place] Zip code: [address] Past Medical History Allergies: No known allergies Admission Admission Data Admission Date: 10/19/2020 Admission Time: 7:04 Arrival Date: 10/19/2020 Arrival Time: 0:00 Admit Source: Other Insurance Payor: Medicare [facility] #: [id number] Height (in.): 28.74 BSA: 1.51 (m2) Height (cm.): 73 BMI: 364.05 (kg/m2) Weight (lbs.): 427.7 Weight (kg.): 194 Lab Results Lab Result Date: 10/19/2020 Lab Result Time: 0:00 Biochemistry Name Units Result Min Max BUN mg/dl 14 --(--*-)-- 7 18 Creatinine mg/dl 1.2 --(---*)-- 0.6 1.3 eGFR ml/min 61.53696 *-(----)-- 90 120 NONAFRICAN CBC Name Units Result Min Max Hemoglobin g/dl 14.4 --(*---)-- 13.5 17.5 Procedure Procedure Types Cath Procedure Diagnostic Procedure LHC Coronaries only Aortic Root Angiography Sedation Charges Moderate Sedation 10-24 minutes Procedure Description Procedure Date Procedure Date: 10/19/2020 Procedure Start Time: 9:46 Procedure End Time: 10:06 Procedure Staff Name Function Ata Akers MD Performing Physician Luz Orozco RT Monitor Inna Zurita RN Nurse Mayda Velez RT Scrub Procedure Data Cath Procedure Fluoroscopy Diagnostic fluoroscopy Total fluoroscopy Time: 5.1 time: 5.1 min min Diagnostic fluoroscopy Total fluoroscopy dose: 565 dose: 565 mGy mGy Contrast Material Contrast Material Type Amount (ml) Isovue 300 100 Entry Location Entry Primary Successful Side Size Upsize Upsize Entry Closure Succes sful Closure Location (Fr) 1 (Fr) 2 (Fr) Remarks Device Remarks Femoral Right 5 Fr Exoseal artery Estimated blood loss: 5 ml Diagnostic catheters Device Type Used For End Catheter Placement MULTIPACK JL 4.0 5Fr Procedure catheter DIAGNOSTIC JL 5 5Fr Procedure catheter ([id number]) MULTIPACK 3DRC 5Fr Procedure catheter MULTIPACK Pigtail 5 Fr Procedure catheter Procedure Complications No complications Procedure Medications Medication Administration Route Dosage Oxygen etCO2 Nasal cannula 2 l/min Lidocaine 2% added to field 20 Heparin Flush Bag added to field 2 bags (1000units/500ml NS) 0.9% NaCl I.V. 100 ml/hr Versed I.V. 1 mg Fentanyl I.V. 50 mcg Versed I.V. 1 mg Fentanyl I.V. 50 mcg Versed I.V. 0.5 mg Fentanyl I.V. 25 mcg Hemodynamics Rest BSA: 1.51 (m2) HGB: 14.4 (g/dl) O2 Consumption: Estimated: 166.59 (ml/min) O2 Co nsumption indexed: Estimated:110.32 (ml/min/m) Heart Rate: 59 (bpm) Snapshots Pre Cath Intra NCS Post Cath Vital Signs Time Heart Resp SPO2 etCO2 NIBP (mmHg) Rhythm Pain Sedation Rate (ipm) (%) (mmHg) Status Level (bpm) 9:25:42 53 10 100 17.3 139/86(120) SB 0 (11) 10(A) , No pain 9:30:00 50 12 96 0 133/78(113) SB 0 (11) 10(A) , No pain 9:34:14 48 18 96 15 135/77(93) SB 0 (11) 10(A) , No pain 9:38:28 45 20 99 0 132/79(118) SB 0 (11) 10(A) , No pain 9:43:29 49 19 94 0 141/79(117) SB 0 (11) 10(A) , No pain 9:48:24 54 19 98 0 135/76(116) SB 0 (11) 9(A) , No pain 9:52:42 55 24 96 0 135/69(102) SB 0 (11) 9(A) , No pain 9:56:59 64 12 96 0 128/73(94) SB 0 (11) 9(A) , No pain 10:01:15 60 18 94 0 126/70(94) SB 0 (11) 10(A) , No pain 10:05:26 29 10 99 0 129/78(98) SB 0 (11) 10(A) , No pain Medications Time Medication Route Dose Verified Delivered Reason Notes Effe ctiveness by by 9:25:12 Oxygen etCO2 2 Ata Buffie used for Nasal l/min Oswald Zurita RN procedure cannula 9:25:24 Lidocaine 2% added 20ml Ata Ata for local to vial Oswald Akers MD anesthetic field 9:25:30 Heparin Flush added 2 Ata Ata used for Bag to bags Oswald Akers MD procedure (1000units/500ml field NS) 9:25:38 0.9% NaCl I.V. 100 Ata Buffie Per ml/hr Oswald Zurita RN physician 9:44:10 Versed I.V. 1 mg Ata Buffie for Oswald Zurita RN sedation 9:44:15 Fentanyl I.V. 50 Ata Buffie for mcg Oswald Zurita RN sedation 9:50:32 Versed I.V. 1 mg Ata Buffie for Oswald Zurita RN sedation 9:50:36 Fentanyl I.V. 50 Ata Buffie for mcg Oswald Zurita RN sedation 9:55:12 Versed I.V. 0.5 Ata Buffie for mg Oswald Zurita RN sedation 9:55:19 Fentanyl I.V. 25 Ata Buffie for mcg Oswald Zurita RN sedation Procedure Log Time Note 9:07:06 Arrival Date: 10/19/2020 12:00:00 AM 9:07:13 Admit Source: Other 9:07:18 Insurance Payor : Medicare 9:07:34 Patient Height : 28.74 inches 9:07:42 Patient Weight : 427.7 lbs 9: Lab Result : Hemoglobin 14.4 g/dl : Lab Result : eGFR NONAFRICAN 61.95604 ml/min 9: Lab Result : BUN 14 mg/dl 9: Lab Result : Creatinine 1.2 mg/dl 9:10:14 Procedure Status Elective Heart Cath (OP). 9:11:01 Inna Zurita RN sent for patient. Start room use. 9:11:22 Time tracking: Regular hours (M-F 7:00 - 5:00) 9:11:26 Plan of Care:Hemodynamics will remain stable., Cardiac rhythm will remain stable., Comfort level will be maintained., Respiratory function will remain adequate., Patient/ family verbilizes understanding of procedure., Procedure tolerated without complication., Recovers from procedure without complications.. 9:16:27 Patient received from Pre/Post Procedure Room to CCL 1 Alert and oriented. Tansferred to table in Supine position. 9:16:29 Warm blankets applied, and surekha hugger turned on for patient comfort. 9:16:30 Correct patient and procedure confirmed by team. 9:23:22 ECG and BP/O2 sat monitors applied to patient. 9:24:36 Vital chart was started 9:24:41 Baseline sample Acquired. 9:24:45 Rhythm: sinus bradycardia 9:24:47 Full Disclosure recording started 9:24:48 Pre-procedure instructions explained to patient. 9:24:48 Pre-op teaching completed and patient verbalized understanding. 9:25:07 H&P Date Dictated: 10/19/2020 H&P Addendum completed by physician on day of procedure. (MUST COMPLETE FOR ALL OUTPATIENTS), New H&P dictated by physician.. 9:25:12 Oxygen 2 l/min etCO2 Nasal cannula was administered by Inna Zurita RN; used for procedure; Verbal order read back and verified. 9:25:15 Family in patients room. 9:25:16 Patient NPO since Midnight. 9:25:23 Patient allergic to No known allergies 9:25:24 Lidocaine 2% 20ml vial added to field was administered by Ata Akesr MD; for local anesthetic; Verbal order read back and verified. 9:25:25 Is the patient allergic to Iodine/contrast media? No. 9:25:30 Heparin Flush Bag (1000units/500ml NS) 2 bags added to field was administered by Ata Akers MD; used for procedure; Verbal order read back and verified. 9:25:38 0.9% NaCl 100 ml/hr I.V. was administered by Inna Zurita RN; Per physician; Verbal order read back and verified. 9:26:07 Is patient on blood thinner?No 9:26:08 Patient diabetic? No. 9:26:10 Previous problem with sedation/anesthesia? No ? 9:26:10 Snore? Yes 9:26:12 Sleep apnea? No 9:26:13 Deviated septum? No 9:26:14 Opens mouth fully? Yes 9:26:15 Sticks out tongue? Yes 9:26:20 Airway obstruction? Yes LUNG NODULES 9:26:24 Dentures? No ? 9:26:31 Pre procedure: right dorsailis pedis pulse 1+ Palpable, but thready & weak; easily obliterated 9:26:33 Patient pain scale 0/10 ?. 9:26:38 IV patent on arrival in left hand with 0.9% NaCl at O. 9:26:41 Lab results completed and on chart. 9:26:44 Right groin area was prepped with chlora-prep and draped in sterile fashion 9:26:45 Alarms reviewed by R. N. 9:26:45 Sharps counted by scrub and verified by R.N. 9:28:15 Stress Test: yes; abnormal INFERIOR 9:29:18 Use device set Femoral Dx 9:29:19 ACIST Syringe ([id number]) opened to sterile field. 9:29:20 Bag Decanter () opened to sterile field. 9:29:21 ACIST Hand Control (82775) opened to sterile field. 9:29:21 ACIST Manifold (17269) opened to sterile field. 9:29:22 Tegaderm 4 x 4 (1626W) opened to sterile field. 9:29:23 Medline Cath Pack ([id number]) opened to sterile field. 9:29:24 DIAGNOSTIC Multipack 5Fr catheter set ([id number]) opened to sterile field. 9:29:25 SHEATH 5FR [place] ([id number]) opened to sterile field. 9:29:25 EMERALD Guide Wire (591-836) opened to sterile field. 9:43:28 --------ALL STOP TIME OUT------ :43:29 Final Timeout: patient, procedure, and site verified with staff and physician. All members of the team are in agreement. 9:43:31 Right groin site verified by team. 9:43:34 Fire Safety Assessment: A--An alcohol-based skin anteseptic being used preoperatively., C--Open oxygen or nitrous oxide is being used., D--An ESU, laser, or fiber-optic light is being used. 9:43:37 Physical assessment completed. ASA score P 2 - A patient with mild systemic disease as per Ata Akers MD. 9:43:42 2) 60-89 Mildly reduced kidney function, and other findings (as for stage 1) point to kidney disease. 9:43:45 Maximum allowable contrast dose (3.7 X eGFR X 0.75)172 ml. 9:43:49 Sedation plan: IV Moderate Sedation Medication:Versed, Fentanyl 9:44:10 Versed 1 mg I.V. was administered by Inna Zurita RN; for sedation; Verbal order read back and verified. 9:44:15 Fentanyl 50 mcg I.V. was administered by Inna Zurita RN; for sedation; Verbal order read back and verified. 9:45:45 Procedure started. 9:46:26 Local anesthetic to right femoral artery with Lidocaine 2% by Ata Akers MD.INITIAL ACCESS ONLY 9:47:05 Zero performed for pressure channel P1 9:47:45 A 5 Fr sheath was inserted into the Right Femoral artery 9:48:17 A MULTIPACK JL 4.0 5Fr catheter was advanced over the wire and used for Procedure. 9:49:00 Catheter removed. 9:49:06 UNABLE TO ENGAGE 9:49:26 A DIAGNOSTIC JL 5 5Fr catheter ([id number]) was advanced over the wire and used for Procedure. 9:50:32 Versed 1 mg I.V. was administered by Inna Zurita RN; for sedation; Verbal order read back and verified. 9:50:36 Fentanyl 50 mcg I.V. was administered by Inna Zurita RN; for sedation; Verbal order read back and verified. 9:51:28 Catheter removed. 9:51:35 UNABLE TO ENGAGE 9:52:21 GUIDE 5FR EBU 4.0 catheter ([id number]) opened to sterile field. 9:52:29 5 Fr EBU 4 guide catheter was inserted over the wire 9:54:08 LCA angiography performed. 9:54:13 Guide catheter removed. 9:54:19 A MULTIPACK 3DRC 5Fr catheter was advanced over the wire and used for Procedure. 9:55:12 Versed 0.5 mg I.V. was administered by Inna Zurita RN; for sedation; Verbal order read back and verified. 9:55:19 Fentanyl 25 mcg I.V. was administered by Inna Zurita RN; for sedation; Verbal order read back and verified. 9:56:50 RCA angiography performed. 9:57:00 Catheter exchanged over wire. 9:57:51 A MULTIPACK Pigtail 5 Fr catheter was advanced over the wire and used for Procedure. 9:59:56 Aortic Root visualized 10:00:36 Catheter removed. 10:00:50 Procedure type changed to Cath procedure, Diagnostic procedure, [facility], Coronaries only, Aortic Root Angiography, Sedation Charges, Moderate Sedation 10-24 minutes 10:00:57 EXOSEAL 5Fr (EX500) opened to sterile field. 10:01:36 Sheath removed intact; hemostasis achieved with Exoseal to the Right Femoral artery. 10:02:31 Procedure ended.(Physican Out) 10:04:27 Fluoroscopy time 05.10 minutes. 10:04:32 Fluoroscopy dose: 565 mGy 10:04:32 Flurop Dose total: 565 10:04:41 Dose Area Product 87068 mGy/cm. 10:05:15 Contrast amount:Isovue 300 100ml. 10:05:17 Maximum allowable dose exceeded? No. 10:05:18 Sharps counted by scrub and verified by R.N. 10:05:21 Post-op/insertion site Right Femoral artery dressed using a 4 x 4 and Tegaderm. 10:05:23 Post-procedure physical assessment completed. ASA score P 2 - A patient with mild systemic disease as per Ata Akers MD. 10:05:26 Post procedure rhythm: sinus bradycardia 10:05:32 Estimated blood loss: 5 ml 10:05:33 Post procedure instruction explained to patient.Patient verbalizes understanding. 10:05:33 Patient needs reinforcement of post procedure teaching. 10:06:13 Procedure and supply charges have been captured, reviewed, submitted and are correct. 10:06:15 Procedure Complication : No complications 10:06:17 Vital chart was stopped 10:06:27 [facility] Findings: mild to moderate CAD (<70%) 10:06:28 Operative report dictated upon procedure completion. 10:06:28 See physician's report for complete and final results. 10:06:31 Report given to Pre/Post Procedure Room. 10:06:33 Patient transfered to Pre/Post Procedure Room with Bed. 10:06:36 Procedure ended. 10:06:36 Full Disclosure recording stopped 10:06:41 End room use (Document Last) 10:09:48 End room use (Document Last) 10:10:12 End room use (Document Last) Device Usage Item Name Manufacture Quantity Catalog Hospital Part Current Minimal L ot# / Number Charge Number Stock Stock Serial# Code ACIST Acist 1 33786 [id number] 689611 [id number] 20 Syringe Medical (41956) Systems Inc Bag Microtek 1 2001S 097838 67401 826376 5 Decanter Medical Inc. () ACIST Hand Acist 1 54204 136151 881951 161312 5 Control Medical (13663) Systems Inc ACIST Acist 1 62985 170616 080327 844367 5 Manifold Medical (85388) Systems Inc Tegaderm 4 3M 1 1626W 969691 573060 031398 5 x 4 (1626W) Medline Medline 1 [id number] 642281 50405 422642 5 Cath Pack ([id number]) DIAGNOSTIC Cardinal 1 [id number] 822524 32359 589622 30 Multipack Health 5Fr catheter set (DQ6409) SHEATH 5FR Terumo 1 USZ936 829297 778190 518133 5 [place] (DGG022) EMERALD Cardinal 1 502-455 987272 455190 035640 5 Guide Wire Health (502455) MULTIPACK Cardinal 1 968302 5 JL 4.0 5Fr Health catheter DIAGNOSTIC Cardinal 1 [id number] 079944 951174 532013 5 JL 5 5Fr Health catheter (482184I) GUIDE 5FR Medtronic 1 [id number] 554432 080405 409160 1 EBU 4.0 catheter ([id number]) MULTIPACK Cardinal 1 442165 5 3DRC 5Fr Health catheter MULTIPACK Cardinal 1 [id number] 5 Pigtail 5 Health Fr catheter EXOSEAL 5Fr Cardinal 1 EX500 491081 295259 146076 10 (EX500) Health Signature Audit [place] Stage Time Signature Unsigned Intra-Procedure 10/19/2020 Luz Orozco 10:09:48 AM RT(R) Intra-Procedure 10/19/2020 Inna Zurita RN 10:10:12 AM Intra-Procedure 10/19/2020 Ata Akers MD 10:11:00 AM [facility] [address] [place] [address]
[2020-10-19 08:38] VITALS: BP 134/74; Ht 188 cm; Wt 88.3 kg
[2020-10-19 08:40] LABS: BASOPHILS 0.4 % (0-2); EOSINOPHILS 1.5 % (0-7); HEMATOCRIT 43.9 % (42.0-54.0); HEMOGLOBIN 14.4 g/dL (13.5-17.5); IMMATURE GRANULOCYTES 0.1 % (0-5); LYMPHOCYTE ABS# 1.69 10x3/uL (1.32-3.57); LYMPHOCYTES 24.8 % (15-50); MCHC 32.8 g/dL (31.0-37.0); MCV 85.2 fL (80.0-100.0); MEAN PLATELET VOLUME 10.5 fL (7.4-10.4); MONOCYTES 7.9 % (2-11); NEUTROPHIL ABS# 4.45 10x3/uL (1.78-5.38); NEUTROPHILS 65.3 % (40-80); PLATELET COUNT 226 10x3/uL (130-400); RBC 5.15 10x6/uL (4.20-6.10); RDW 14.4 % (11.5-14.5); WBC 6.8 10x3/uL (4.8-10.8)
[2020-10-19 08:54] LABS: ANION GAP 10.4 mmol/L (8-16); CALCIUM 8.8 mg/dL (8.5-10.1); CARBON DIOXIDE 27.5 mmol/L (21.0-32.0); CHOL - HDL RATIO 2.5 ratio (2.3-4.9); CREATININE - SERUM 1.2 mg/dL (0.6-1.3); LDL-HDL RATIO 1.3 ratio (1.5-3.5); POTASSIUM - SERUM 3.9 mmol/L (3.5-5.1)
[2020-10-19] MEDS ORDERED: ASPIRIN81 MG (08:59)
[2020-10-19] MEDS ORDERED: BAYER CHEWABLE81 MG PO (09:00)
[2020-10-19] MEDS ORDERED: VITAMIN B-12100 MCG PO (09:01)
--- NOTE | 2020-10-19 10:25 | NUR ---
ARRIVES TO ROOM 4 S/P CATH. AAOX3, PLACED ON MONITORS ALARMS ON, SEE LOCK MAINTENANCE SUPERVISOR , IV INFUSING PER ORDERS, PT UPDATE ON PLAN OF CARE, SPOUSE AT BEDSIDE, DENIES PAIN OR NEEDS, CALL LIGHT WITHIN REACH
--- NOTE | 2020-10-19 10:45 | NUR ---
DR RONDON AT BEDSIDE UP DATED PT AND SPOUSE ON CATH RESULTS
--- NOTE | 2020-10-19 11:00 | NUR ---
PT AROUSES EASILY, AOX3, VSS, SB NO ECTOPY, RIGHT GROIN SOFT WITH NO BLEEDING OR OOZING, NO PALPABLE HEMATOMA, PEDAL PULSE PALPABLE, IV INFUSING PER ORDERS, DENIES PAIN OR NEEDS, CALL LIGHT WITHIN REACH,
--- NOTE | 2020-10-19 11:15 | NUR ---
VISITING WITH SPOUSE AT BEDSIDE, WATER AND SANDWICH GIVEN, VSS, SB ON MONITOR, RIGHT GROIN SOFT NO BLEEDING OR OOZING NOTED, NO PALPABLE HEMATOMA PEDAL PULSES PALPABLE, IV INFUSING PER ORDERS, UPDATE GIVEN ON DISCHARGE TIME, PT IS PLACED IN SEMI FOWLERS POSITION, CALL LIGHT WITH IN REACH
--- NOTE | 2020-10-19 11:45 | NUR ---
NO CHANGE , VSS, SB, RIGHT GROIN SOFT WITH NO BLEEDING OR OOZING NOTED, PEDAL PULSE PALPABLE, PT DENIES PAIN OR NEEDS , IV INFUSING PER ORDERS, CALL LIGHT WITHIN REACH,
--- NOTE | 2020-10-19 12:15 | NUR ---
PT AMBULTES TO BATHROOM VOIDS WITHOUT DIFFICULTY, RIGHT GROIN STABLE NO BLEEDING OR OOZING NOTED, NO HEMATOMA PALPATED, RIGHT LOWER EXTREMITY PINK AND WARM MOVES ALL DIGITS CAP REFILL WNL, PEDAL PULSE PALPABLE, DENIES PAIN OR NEEDS, IV REMOVED PER ORDERS INTACT 2X2 PLACED AT SITE. DISCHARGE INSTRUCTIONS REVIEWED WITH PT AND SPOUSE VERBALIZED UNDERSTANDING, CALL LIGHT WITHIN REACH.
--- NOTE | 2020-10-19 12:30 | NUR ---
PT DISCHARGED TAKEN TO PRIVATE VEHICLE VIA WHEELCHAIR, PT HAS NO QUESTIONS OR CONCERNS AT THIS TIME, DENIES PAIN OR NEEDS AT THIS TIME
== END 2020-10-19 12:30 | disposition home or self-care (01) ==
LOC: D.CATH 07:04
PROVIDERS: ATTEND Internal Medicine Cardiovascular Disease
DX: I25.118 Atherosclerotic heart disease of native coronary artery with other forms of angina pectoris (principal); R94.39 Abnormal result of other cardiovascular function study; I10 Essential (primary) hypertension; E78.5 Hyperlipidemia, unspecified; I48.0 Paroxysmal atrial fibrillation